=== PATIENT | male | born 1965 | race Caucasian/White ===

== ENCOUNTER 2020-11-14 08:39 | Emergency (ER) | payer MEDICAID ==
[~2020-11-14] VITALS: Ht 167.6 cm; Wt 90.7 kg
[2020-11-14 08:45] VITALS: BP_SYST 145
[2020-11-14] MEDS ORDERED: IBUPROFEN 400 MG TABLET PO ONE (09:00)
[2020-11-14] MEDS ORDERED: ACYC400T PO (09:02)
[2020-11-14] MEDS ORDERED: NAPR-1172 PO (09:02)
[2020-11-14 15:01] VITALS: BP_SYST 145
== END 2020-11-14 15:01 | disposition home or self-care (01) ==
LOC: SED 08:39
DX: B00.1 Herpesviral vesicular dermatitis (principal); Z79.899 Other long term (current) drug therapy
CPT/HCPCS: 99283

== ENCOUNTER 2021-06-05 18:56 | Inpatient (IN) | payer MEDICAID, SELFPAY ==
[~2021-06-05] VITALS: Ht 177.8 cm; Wt 88.0 kg
[2021-06-05 18:56] VITALS: BP_SYST 134
[~2021-06-05 18:56] MED LIST: ACYC400T19 PO; NAPR-1172 PO
--- NOTE | 2021-06-05 18:56 | NUR ---
ASSISTED OUT OF CAR TO WHEELCHAIR, PLACED IN BED #7 AND TRIAGED. REPORT GIVEN TO LISE TORRES
--- NOTE | 2021-06-05 19:05 | NUR ---
nowPt awake, alert. States that he had beed having sciatica pain in left leg for some time. Whats diffrent is that today he vomited dark tarry emesis and defecated dark tarry stools.
--- NOTE | 2021-06-05 19:05 | NUR ---
ER at bedside examining patient.
[2021-06-05] MEDS ORDERED: ONDANSETRON HCL 4 MG/2 ML VIAL IVP ONE (19:15)
[2021-06-05] MEDS ORDERED: PANTOPRAZOLE SODIUM 40 MG/VIAL (PROTONIX) IVP ONE (19:15)
[2021-06-05] MEDS ORDERED: NACL 0.9% 1,000 ML IV ONE (19:15)
[2021-06-05] MEDS ORDERED: ONDANSETRON HCL 4 MG/2 ML VIAL ONE (19:30)
[2021-06-05 19:37] LABS: BASOPHILS % (AUTO) 0.3 % (0.0-2.0); EOSINOPHILS % (AUTO) 0.2 % (0.0-4.0); HEMATOCRIT 26.2 % (36-54); HEMOGLOBIN 9.1 g/dL (14.0-18.0); LYMPHOCYTES % (AUTO) 15.6 % (20.5-51.5); MEAN CORPUSCULAR HEMOGLOBIN 33 pg (27-31); MEAN CORPUSCULAR HGB CONC 35 % (32-36); MEAN CORPUSCULAR VOLUME 94 fL (79.0-98.0); MONOCYTES # (AUTO) 0.6 K/uL (0.0-1.0); MONOCYTES % (AUTO) 4.6 % (1.7-9.3); NEUTROPHILS % (AUTO) 79.3 % (40.0-70.0); PLATELET COUNT (AUTO) 200 K/uL (130-430); RED CELL DISTRIBUTION WIDTH 15.1 % (9.0-15.0); WHITE BLOOD COUNT (AUTO) 12.7 K/uL (4.8-10.8)
[2021-06-05 19:42] LABS: CALCIUM 8.4 mg/dL (8.4-11.0); CREATININE 0.94 mg/dL (0.55-1.30)
[2021-06-05 19:44] LABS: INR 1.1 (0.80-1.20); PROTHROMBIN TIME 12.1 SECS (9.5-12.5)
[2021-06-05 19:48] LABS: ALBUMIN 2.1 g/dL (3.4-4.8); TOTAL BILIRUBIN 1.1 mg/dL (0.0-1.0)
--- NOTE | 2021-06-05 20:55 | NUR ---
RECTAL EXAM FOR OCCULT BLOOD, STOOL GUIAC POSITIVE.
--- NOTE | 2021-06-05 21:25 | NUR ---
CT ABDOMEN AND PELVIS W/ CONTRAST DONE.
--- NOTE | 2021-06-05 22:30 | NUR ---
BACK FROM US SCROTUM.
[2021-06-05] MEDS ORDERED: MORPHINE 2 MG/ML INJ. SYRINGE IVP PRN (23:00)
[2021-06-05] MEDS ORDERED: ONDANSETRON HCL 4 MG/2 ML VIAL IVP PRN (23:00)
[2021-06-05] MEDS ORDERED: LORazepam 2 MG/ML VIAL IVP PRN (23:00)
[2021-06-05 23:32] LABS: FREE T4 (FREE THYROXINE) 1.4 ng/dl (0.8-1.5); THYROID STIMULATING HORMONE 2.89 uIu/mL (0.36-3.74)
[2021-06-06] MEDS ORDERED: MORPHINE 4 MG INJ. 4 MG/ML VIAL IVP ONE (00:15)
--- NOTE | 2021-06-06 01:00 | NUR ---
Patient will be admitted to care of DR ALBERTO. Admitted to TELEMETRY unit. Will go to room 117-B. Belongings list completed. Complete and up to date summary report printed. SBAR report to be given at bedside with opportunity for questions.
--- NOTE | 2021-06-06 01:20 | NUR ---
ADMISSION NOTE Received patient from ER via georg[facility], received report from BRIAN LEZAMA. Patient admitted with diagnosis of GI BLEED. Patient oriented to hospital routine, call light, toileting and safety-patient verbalized understanding.
[2021-06-06 01:30] VITALS: BP_SYST 141
[2021-06-06] MEDS: MORPHINE 4 MG INJ. 4 MG/ML VIAL IVP PRN ×3 (01:51→23:08)
[2021-06-06] MEDS: NACL 0.9% 1,000 ML IV SCH ×3 (01:53→19:47)
[2021-06-06] MEDS ORDERED: OCTREOTIDE ACETATE 200 MCG/1 ML 5ML VIAL ONE (02:19)
[2021-06-06] MEDS ORDERED: PANTOPRAZOLE SODIUM 40 MG/VIAL (PROTONIX) ONE ×2 (02:28→06:29)
[2021-06-06] MEDS: PANTOPRAZOLE SODIUM 40 MG in NS 50 ML IV SCH ×5 (02:39→18:54)
[2021-06-06] MEDS: OCTREOTIDE ACETATE 1,250 MCG in NS 243.75 ML IV SCH ×2 (02:57→23:08)
--- NOTE | 2021-06-06 03:00 | NUR ---
NEW IV STARTED ON RIGHT FOREARM 22G, PATIENT TOLERATED IT WELL.
--- NOTE | 2021-06-06 03:20 | NUR ---
CONSULTATION PAGED REASON FOR CONSULTATION: GIB WAS CONSULT CALED?Y PERSON WHO WAS NOTIFIED: Xiomara CONSULTING PHYSICIAN: Dr. Darling (Dr. Pickard is supervisor international reservations) REQUESTING PHYSICIAN: Dr. Pizarro
[2021-06-06] MEDS: metroNIDAZOLE 500 MG TABLET PO SCH ×3 (06:17→22:52)
--- NOTE | 2021-06-06 06:28 | NUR ---
SPOKE WITH DR ALBERTO, CLARIFIED PATIENT'S DIET. MD ORDERED NPO EXCEPT MEDS WITH SIPS OF H2O
--- NOTE | 2021-06-06 06:32 | NUR ---
Nutrition Update Han Scale 18 noted. Pt admitted for GI Bleed Diet: NPO BMI: 28.7 kg/m2 RD to follow per nutrition care standards.
--- NOTE | 2021-06-06 07:15 | NUR ---
opening note received sbar from night RN, patient in bed, respirations even, non labored, bed in low and locked position call light within reach, bed alarm on. ivf''s running as ordered.
--- NOTE | 2021-06-06 07:45 | NUR ---
md rounds Dr Esquivel bedside examining patient
--- NOTE | 2021-06-06 08:44 | NUR ---
CONSULTATION PAGED REASON FOR CONSULTATION:R/O NEOPLASM WAS CONSULT CALLED?Y PERSON WHO WAS NOTIFIED:CARA CONSULTING PHYSICIAN:STEPHANIE ESCALONA SECURITY PROGRAM MANAGER SPECIALTY:ONCOLOGY/HE,ATOLOGY SECURITY PROGRAM MANAGER PHONE NUMBER:[phone] REQUESTING PHYSICIAN:RAFIQ CABRERA
[2021-06-06 09:56] LABS: BASOPHILS % (AUTO) 0.4 % (0.0-2.0); EOSINOPHILS # (AUTO) 0.1 K/uL (0.0-0.4); HEMATOCRIT 22.1 % (36-54); LYMPHOCYTES # (AUTO) 1.4 K/uL (1.0-5.5); LYMPHOCYTES % (AUTO) 13.5 % (20.5-51.5); MEAN CORPUSCULAR HEMOGLOBIN 33 pg (27-31); MEAN CORPUSCULAR HGB CONC 35 % (32-36); MEAN CORPUSCULAR VOLUME 96 fL (79.0-98.0); MONOCYTES # (AUTO) 0.8 K/uL (0.0-1.0); MONOCYTES % (AUTO) 7.4 % (1.7-9.3); NEUTROPHILS # (AUTO) 8.1 K/uL (1.8-7.7); NEUTROPHILS % (AUTO) 77.7 % (40.0-70.0); PLATELET COUNT (AUTO) 142 K/uL (130-430); RED BLOOD CELL COUNT(AUTO) 2.32 MIL/uL (4.2-6.2); RED CELL DISTRIBUTION WIDTH 15.4 % (9.0-15.0); WHITE BLOOD COUNT (AUTO) 10.5 K/uL (4.8-10.8)
[2021-06-06 10:00] LABS: ALANINE AMINOTRANSFERASE 55 U/L (12-78); ALBUMIN 1.9 g/dL (3.4-4.8); ANION GAP 10 (5-15); ASPARTATE AMINOTRANSFERASE 97 U/L (10-37); CALCIUM 7.7 mg/dL (8.4-11.0); CHLORIDE 111 mmol/L (98-107); CREATININE 1.03 mg/dL (0.55-1.30); GLUCOSE 107 mg/dL (70-99); PHOSPHORUS 3.2 mg/dL (2.7-4.5); POTASSIUM 4.2 mmol/L (3.5-5.1); SODIUM SERUM 142 mmol/L (136-145); TOTAL BILIRUBIN 1.3 mg/dL (0.0-1.0); UREA NITROGEN, BLOOD 34 mg/dL (8-21)
[2021-06-06 10:01] LABS: GFR AFRICAN AMERICAN 96 mL/min (>90)
[2021-06-06 10:08] LABS: HEMOGLOBIN 7.7 g/dL (14.0-18.0)
--- NOTE | 2021-06-06 10:15 | NUR ---
nurse note spoke with Kan in the lab, they will run urine drug screen off urine that was collected for UA this am
[2021-06-06 10:16] LABS: TOTAL IRON BIND. CAPACITY 318 ug/dL (250-450)
[2021-06-06 10:17] LABS: ALCOHOL, BLOOD < 3 mg/dL (<10)
[2021-06-06 10:42] LABS: BARBITURATE, URINE NEGATIVE (NEG <=200); METHAMPHETAMINES SCREEN,URINE POSITIVE (NEG <=500); URINE AMPHETAMINE POSITIVE (NEG <=500); URINE METHADONE NEGATIVE (NEG <=200)
[2021-06-06 10:43] LABS: BENZODIAZEPINE, URINE NEGATIVE (NEG <=150); CANNABINOID, URINE POSITIVE (NEG <=50); COCAINE, URINE NEGATIVE (NEG <=150); OPIATE, URINE POSITIVE (NEG <=100); PHENCYCLIDINE SCREEN,URINE NEGATIVE (NEG <=25); UR TRICYCLIC ANTIDEPRESSANTS NEGATIVE (NEG <=300); URINE OXYCODONE SCREEN NEGATIVE (NEG <=100); URINE PROPOXYPHENE SCREEN NEGATIVE (NEG <=300)
[2021-06-06 11:33] VITALS: BP_SYST 158
--- NOTE | 2021-06-06 12:50 | NUR ---
MD ROUNDS DR YING BEDSIDE EXAMINING PATIENT
--- NOTE | 2021-06-06 12:57 | NUR ---
MD ROUNDS DR ALBERTO BEDSIDE EXAMINING PATIENT
[2021-06-06 15:26] VITALS: BP_SYST 155
[2021-06-06 16:00] VITALS: BP_SYST 148
--- NOTE | 2021-06-06 17:10 | NUR ---
NURSE NOTE PATIENT IN BED, RESPIRATIONS EVEN, NON LABORED, BED IN LOW AND LOCKED POSITION, CALL LIGHT WITHIN REACH, BED ALARM ON. PATIENTS GIRLFRIEND IS VISITING BEDSIDE
--- NOTE | 2021-06-06 18:59 | NUR ---
CLOSING NOTE PATIENT IN BED, RESPIRATIONS EVEN, NON LABORED, BED IN LOW AND LOCKED POSITION, CALL LIGHT WITHIN REACH, BED ALARM ON, IVF'S RUNNING ORDERED. WILL CONTINUE TO MONITOR UNTIL NIGHT RN ARRIVES
--- NOTE | 2021-06-06 19:30 | NUR ---
Opening note Received pt, lying in bed to the left side, resting with eyes closed. Easily arouse by voice and tactile stimuli. On RA, breathing non labored. 2 IV site patent and intact, no infiltrations noted. AOX4, call light within reach, bed to lowest with bed alarm on. On Fall safety/aspiration precaution.
[2021-06-06 23:23] VITALS: BP_SYST 148
--- NOTE | 2021-06-07 | NUR ---
acknowledge bias machine operator helper documentation.
[2021-06-07] MEDS: PANTOPRAZOLE SODIUM 40 MG in NS 50 ML IV SCH ×5 (00:05→19:48)
[2021-06-07 00:06] VITALS: BP_SYST 148
[2021-06-07 05:08] LABS: FOLATE (FOLIC ACID) 8.6 ng/mL (>3.0)
[2021-06-07] MEDS: metroNIDAZOLE 500 MG TABLET PO SCH ×3 (05:13→21:06)
[2021-06-07] MEDS: NACL 0.9% 1,000 ML IV SCH ×3 (05:16→17:15)
[2021-06-07 06:11] LABS: BASOPHILS % (AUTO) 0.4 % (0.0-2.0); EOSINOPHILS # (AUTO) 0.2 K/uL (0.0-0.4); EOSINOPHILS % (AUTO) 1.8 % (0.0-4.0); HEMATOCRIT 22.8 % (36-54); HEMOGLOBIN 7.8 g/dL (14.0-18.0); LYMPHOCYTES # (AUTO) 1.4 K/uL (1.0-5.5); LYMPHOCYTES % (AUTO) 13.5 % (20.5-51.5); MEAN CORPUSCULAR HEMOGLOBIN 34 pg (27-31); MEAN CORPUSCULAR HGB CONC 34 % (32-36); MEAN CORPUSCULAR VOLUME 100 fL (79.0-98.0); MONOCYTES # (AUTO) 0.7 K/uL (0.0-1.0); MONOCYTES % (AUTO) 6.9 % (1.7-9.3); NEUTROPHILS % (AUTO) 77.4 % (40.0-70.0); PLATELET COUNT (AUTO) 142 K/uL (130-430); RED BLOOD CELL COUNT(AUTO) 2.29 MIL/uL (4.2-6.2); RED CELL DISTRIBUTION WIDTH 15.7 % (9.0-15.0); WHITE BLOOD COUNT (AUTO) 10.4 K/uL (4.8-10.8)
--- NOTE | 2021-06-07 06:14 | NUR ---
Closing note Resident sleeping, able to arouse verbally and tactile stimuli. On RA, non labored. AOX4, IV sites patent and intact, no infiltrations or complications noted. Been NPO since midnight for am procedure. Call light within reach, on safety/fall/aspiration precaution. Frequent rounding checks down.
[2021-06-07 06:17] LABS: INR 1.2 (0.80-1.20); PROTHROMBIN TIME 12.2 SECS (9.5-12.5)
[2021-06-07 06:30] LABS: CALCIUM 7.5 mg/dL (8.4-11.0); CREATININE 1.03 mg/dL (0.55-1.30); PHOSPHORUS 3.1 mg/dL (2.7-4.5); POTASSIUM 3.6 mmol/L (3.5-5.1); TOTAL BILIRUBIN 1.3 mg/dL (0.0-1.0)
--- NOTE | 2021-06-07 07:25 | NUR ---
OPENING NOTES: RECEIVED REPORT FROM WOOD DRILLING MACHINE OPERATOR NURSE. PATIENT IS ASLEEP LAYING DOWN IN BED. TOLERATED OXYGEN ON ROOM AIR WITH NO DISTRESS NOTED. IV LINE PATENT AND INTACT. WITH NO INFILTRATION NOTED. PATIENT STABLE AT THIS TIME. SAFETY, FALL, AND ASPIRATION PRECAUTIONS ARE IN PLACE. BED LOCKED IN LOWEST POSITION AND CALL LIGHT IN REACH. WILL CONTINUE TO MONITOR PATIENT FOR ANY CHANGES.
[2021-06-07] MEDS ORDERED: MIDAZOLAM HCL 5 MG/5 ML VIAL ONE (07:50)
[2021-06-07] MEDS ORDERED: SIMETHICONE 40 MG/0.6 ML ML ONE (07:50)
[2021-06-07] MEDS ORDERED: MEPERIDINE 100 MG INJ. 100 MG/ML VIAL ONE (07:50)
[2021-06-07 08:00] VITALS: BP_SYST 159
--- NOTE | 2021-06-07 08:00 | NUR ---
PATIENT WHEELED TO GI FOR EGD. AWAITING FOR COME BACK.
--- NOTE | 2021-06-07 09:20 | NUR ---
PATIENT BACK ON HIS ROOM AFTER EGD.
[2021-06-07 11:29] VITALS: BP_SYST 161
[2021-06-07 12:00] VITALS: BP_SYST 161
--- NOTE | 2021-06-07 13:47 | NUR ---
Dietitian Recommendations * Recommend: advance diet when medically appropriate * Recommend: target diet: GI/soft Cardiac diet Please see Nutritional Assessment.
[2021-06-07 16:00] VITALS: BP_SYST 169
--- NOTE | 2021-06-07 16:31 | NUR ---
CONSULTATION PAGED/CALLED Reason for Consultation: [] HYPERTENSION Person Who was Notified: [] MAGALY Consulting Physician: [] DR BUI Shift Manager Specialty: [] INSPECTOR CIRCUITRY NEGATIVE Ordering Physician: [] DR ORELLANA
--- NOTE | 2021-06-07 18:32 | NUR ---
CLOSING NOTES: PATIENT IS ASLEEP LAYING DOWN IN BED. TOLERATED OXYGEN ON ROOM AIR WITH NO DISTRESS NOTED. IV LINE PATENT AND INTACT. WITH NO INFILTRATION NOTED. PATIENT STABLE AT THIS TIME. SAFETY, FALL, AND ASPIRATION PRECAUTIONS REMAINED IN PLACE. BED LOCKED IN LOWEST POSITION AND CALL LIGHT IN REACH. WILL ENDORSE PATIENT CARE TO ONCOMING EARTH OBSERVATIONS CHIEF SCIENTIST NURSE.
[2021-06-07] MEDS: amLODIPine BESYLATE 5 MG TABLET PO SCH (18:45)
--- NOTE | 2021-06-07 19:30 | NUR ---
Opening note Received pt from out going nurse. Pt lying in bed awake and alert with family at bedside. On RA, breathing non labored. No distress noted. Pt has 2 IVs, both patent and intact, no infiltration or complications. Bed to lowest position and locked/alarmed. Call light within reach and needs attended. On safety/fall/aspiration precaution.
[2021-06-07] MEDS: MORPHINE 4 MG INJ. 4 MG/ML VIAL IVP PRN (19:53)
[2021-06-07] MEDS ORDERED: amLODIPine BESYLATE 5 MG TABLET PO ONE (20:45)
[2021-06-07 22:24] VITALS: BP_SYST 164
[2021-06-07] MEDS: OCTREOTIDE ACETATE 1,250 MCG in NS 243.75 ML IV SCH (23:38)
[2021-06-08] MEDS: PANTOPRAZOLE SODIUM 40 MG in NS 50 ML IV SCH ×2 (00:51→05:43)
[2021-06-08 00:59] VITALS: BP_SYST 149
[2021-06-08] MEDS: MORPHINE 4 MG INJ. 4 MG/ML VIAL IVP PRN ×4 (02:52→18:34)
[2021-06-08] MEDS: metroNIDAZOLE 500 MG TABLET PO SCH ×3 (05:43→22:42)
--- NOTE | 2021-06-08 06:17 | NUR ---
Closing note Resident sleeping, able to arouse verbally and tactile stimuli. On RA, non labored. AOX4, IV sites patent and intact, no infiltrations or complications noted. Call light within reach, on safety/fall/aspiration precaution. Frequent rounding checks down.
[2021-06-08 06:28] LABS: BASOPHILS % (AUTO) 0.4 % (0.0-2.0); EOSINOPHILS # (AUTO) 0.2 K/uL (0.0-0.4); EOSINOPHILS % (AUTO) 1.8 % (0.0-4.0); HEMATOCRIT 22.3 % (36-54); LYMPHOCYTES % (AUTO) 10.8 % (20.5-51.5); MEAN CORPUSCULAR HEMOGLOBIN 35 pg (27-31); MEAN CORPUSCULAR HGB CONC 35 % (32-36); MEAN CORPUSCULAR VOLUME 100 fL (79.0-98.0); MONOCYTES # (AUTO) 0.7 K/uL (0.0-1.0); MONOCYTES % (AUTO) 7.4 % (1.7-9.3); NEUTROPHILS # (AUTO) 7.1 K/uL (1.8-7.7); NEUTROPHILS % (AUTO) 79.6 % (40.0-70.0); PLATELET COUNT (AUTO) 126 K/uL (130-430); RED BLOOD CELL COUNT(AUTO) 2.23 MIL/uL (4.2-6.2); RED CELL DISTRIBUTION WIDTH 16.1 % (9.0-15.0); WHITE BLOOD COUNT (AUTO) 8.9 K/uL (4.8-10.8)
[2021-06-08 06:31] LABS: CALCIUM 7.6 mg/dL (8.4-11.0); CREATININE 0.97 mg/dL (0.55-1.30); POTASSIUM 3.5 mmol/L (3.5-5.1)
--- NOTE | 2021-06-08 07:40 | NUR ---
OPENING NOTES: RECEIVED REPORT FROM INSTANT POTATO PROCESSOR NURSE. PATIENT IS ASLEEP LAYING DOWN IN BED. TOLERATED OXYGEN ON ROOM AIR WITH NO DISTRESS NOTED. IV LINE PATENT AND INTACT. WITH NO INFILTRATION NOTED. PATIENT STABLE AT THIS TIME. SAFETY, FALL, AND ASPIRATION PRECAUTIONS ARE IN PLACE. BED LOCKED IN LOWEST POSITION AND CALL LIGHT IN REACH. WILL CONTINUE TO MONITOR PATIENT FOR ANY CHANGES.
[2021-06-08 08:00] VITALS: BP_SYST 158
[2021-06-08 08:16] LABS: HEMOGLOBIN 7.9 g/dL (14.0-18.0)
[2021-06-08] MEDS: PANTOPRAZOLE SODIUM 40 MG/VIAL (PROTONIX) IVP SCH ×2 (09:24→20:03)
[2021-06-08] MEDS: amLODIPine BESYLATE 5 MG TABLET PO SCH (09:25)
[2021-06-08] MEDS: PROPRANOLOL HCL 10 MG TABLET (INDERAL) PO SCH ×2 (09:26→20:03)
[2021-06-08] MEDS: NACL 0.9% 1,000 ML IV SCH ×2 (09:29→19:59)
[2021-06-08 12:09] VITALS: BP_SYST 156
[2021-06-08 15:52] VITALS: BP_SYST 145
--- NOTE | 2021-06-08 16:02 | NUR ---
SS notes SPECIAL EVENTS FUNDRAISER met with pt. bedside. Pt had a visitor, Alyssa Randall present. SPECIAL EVENTS FUNDRAISER aked if pt. wanted his girlfriend, Alyssa to leave the room. Pt. gave permission to speak in front girlfriend. SPECIAL EVENTS FUNDRAISER explained her role as a marriage and family social worker and asked pt. to confirm his demographics. Pt. stated he and girlfriend reside together. Pt. has 3 adult children as additional support. Children reside in [facility] and [place]. SPECIAL EVENTS FUNDRAISER told pt. she was there for his positive toxicology. Pt. stated he knew SPECIAL EVENTS FUNDRAISER wanted to talk about this matter. SPECIAL EVENTS FUNDRAISER brought a copy of the toxicology report with her to show Pt. who stated he barely uses and does not know why he tested for Opiates, Amphetamines, Methamphetamines and Cannabinoids. Pt. stated he uses for pain relief and knows it is a way to self medicate. Pt. stated he uses girlfreinds vapor with pot in it. GF stated she gets it at a dispensary and said she does not put anything extra inside her vape. SPECIAL EVENTS FUNDRAISER shared some resources with pt. and asked if he wanted to make any changes. Pt. stated he will speak to the Dr. sun medication for his pain and seek any substance abuse assistance. SPECIAL EVENTS FUNDRAISER asked pt. if he had any questions and shared a business card with him. SPECIAL EVENTS FUNDRAISER will remain available as needed.
[2021-06-08 16:06] VITALS: BP_SYST 145
--- NOTE | 2021-06-08 18:30 | NUR ---
CLOSING NOTES: PATIENT IS ASLEEP LAYING DOWN IN BED. TOLERATED OXYGEN ON ROOM AIR WITH NO DISTRESS NOTED. IV LINE PATENT AND INTACT. WITH NO INFILTRATION NOTED. PATIENT STABLE AT THIS TIME. SAFETY, FALL, AND ASPIRATION PRECAUTIONS REMAINED IN PLACE. BED LOCKED IN LOWEST POSITION AND CALL LIGHT IN REACH. WILL ENDORSE PATIENT CARE TO ONCOMING DIRECTOR OF REGIONAL SALES NURSE.
[2021-06-08 20:00] VITALS: BP_SYST 148
[2021-06-08] MEDS: OCTREOTIDE ACETATE 1,250 MCG in NS 243.75 ML IV SCH (22:42)
[2021-06-09 00:53] VITALS: BP_SYST 136
[2021-06-09] MEDS: MORPHINE 4 MG INJ. 4 MG/ML VIAL IVP PRN ×3 (01:20→14:02)
[2021-06-09 06:25] LABS: CALCIUM 7.3 mg/dL (8.4-11.0); CREATININE 0.95 mg/dL (0.55-1.30); POTASSIUM 3.5 mmol/L (3.5-5.1)
[2021-06-09] MEDS: metroNIDAZOLE 500 MG TABLET PO SCH ×2 (06:43→13:45)
[2021-06-09] MEDS: NACL 0.9% 1,000 ML IV SCH (06:44)
[2021-06-09 07:25] LABS: BASOPHILS % (AUTO) 0.3 % (0.0-2.0); EOSINOPHILS # (AUTO) 0.2 K/uL (0.0-0.4); EOSINOPHILS % (AUTO) 1.7 % (0.0-4.0); HEMOGLOBIN 7.5 g/dL (14.0-18.0); LYMPHOCYTES # (AUTO) 1.2 K/uL (1.0-5.5); LYMPHOCYTES % (AUTO) 13.1 % (20.5-51.5); MEAN CORPUSCULAR HEMOGLOBIN 35 pg (27-31); MEAN CORPUSCULAR HGB CONC 35 % (32-36); MEAN CORPUSCULAR VOLUME 100 fL (79.0-98.0); MONOCYTES # (AUTO) 0.7 K/uL (0.0-1.0); MONOCYTES % (AUTO) 7.3 % (1.7-9.3); NEUTROPHILS # (AUTO) 7.2 K/uL (1.8-7.7); NEUTROPHILS % (AUTO) 77.6 % (40.0-70.0); PLATELET COUNT (AUTO) 137 K/uL (130-430); RED BLOOD CELL COUNT(AUTO) 2.13 MIL/uL (4.2-6.2); RED CELL DISTRIBUTION WIDTH 16.7 % (9.0-15.0); WHITE BLOOD COUNT (AUTO) 9.2 K/uL (4.8-10.8)
[2021-06-09 07:29] LABS: HEMATOCRIT 21.2 % (36-54)
--- NOTE | 2021-06-09 07:44 | NUR ---
CLOSING NOTES: PATIENT IS IN BED, ALERT AND ORIENTED. REPORT GIVEN TO DAYSHIFT NURSE.
--- NOTE | 2021-06-09 07:50 | NUR ---
NURSING NOTE NOTIFIED MD YING OF CRITICAL VALUE, H&H 7.5/21.2. STATED " WILL CONTINUE TO MONITOR AND WILL PROVIDE BLOOD TRANSFUSION ID HEMOGLOBIN DROPS BELOW 7.
[2021-06-09 08:00] VITALS: BP_SYST 125
--- NOTE | 2021-06-09 08:27 | NUR ---
PT GIVEN PAIN MEDICATION FOR LEFT LEGD PAIN.
[2021-06-09] MEDS: PROPRANOLOL HCL 10 MG TABLET (INDERAL) PO SCH (08:28)
[2021-06-09] MEDS: amLODIPine BESYLATE 5 MG TABLET PO SCH (08:29)
[2021-06-09] MEDS: PANTOPRAZOLE SODIUM 40 MG/VIAL (PROTONIX) IVP SCH (08:30)
[2021-06-09 12:00] VITALS: BP_SYST 144
--- NOTE | 2021-06-09 15:27 | NUR ---
REVIEWED ASSESSMENT BY ESTRELLA DURAN. THIS RN CONCUR WITH HIS ASSESSMENT.
[2021-06-09 16:00] VITALS: BP_SYST 138
--- NOTE | 2021-06-09 16:33 | NUR ---
GEN SURGEON, DR ADAMSON WAS CALLED RE: TO INFORM PT WENT AMA. SPOKE TO GRETA
--- NOTE | 2021-06-09 16:35 | NUR ---
LOG DECKMAN ATTENDING MD DR CRISTIAN MCWILLIAMS WAS CALLED, RE: TO INFORM PT WENT AMA.
--- NOTE | 2021-06-09 16:39 | NUR ---
PT SIGNED AMA. PT LEFT WITH HIS .
--- NOTE | 2021-06-09 16:40 | NUR ---
UNIT SECT JOSÉ CALLED DR MCWILLIAMS AND DR ADAMSON TO MAKE AWARE OF PT'S AMA.
== END 2021-06-09 16:40 | disposition left against medical advice (07) | DRG 241 ==
LOC: SED 18:56 → STU 22:58
PROC: 06L38CZ Occlusion of Esophageal Vein with Extraluminal Device, Via Natural or Artificial Opening Endoscopic (ICD-10-PCS; 2021-06-07)
PROC: 0DB78ZX Excision of Stomach, Pylorus, Via Natural or Artificial Opening Endoscopic, Diagnostic (ICD-10-PCS; principal; 2021-06-07 08:30)
DX: K29.71 Gastritis, unspecified, with bleeding (principal); E43 Unspecified severe protein-calorie malnutrition; I42.0 Dilated cardiomyopathy; R18.8 Other ascites; E87.8 Other disorders of electrolyte and fluid balance, not elsewhere classified; R16.2 Hepatomegaly with splenomegaly, not elsewhere classified; I85.01 Esophageal varices with bleeding; K74.60 Unspecified cirrhosis of liver; E86.0 Dehydration; D72.829 Elevated white blood cell count, unspecified; D64.9 Anemia, unspecified; N43.3 Hydrocele, unspecified; R59.1 Generalized enlarged lymph nodes; K44.9 Diaphragmatic hernia without obstruction or gangrene; F17.210 Nicotine dependence, cigarettes, uncomplicated; Z20.822 Contact with and (suspected) exposure to COVID-19; Z53.29 Procedure and treatment not carried out because of patient's decision for other reasons; I10 Essential (primary) hypertension; I25.10 Atherosclerotic heart disease of native coronary artery without angina pectoris; M54.30 Sciatica, unspecified side; Z88.1 Allergy status to other antibiotic agents; Z88.8 Allergy status to other drugs, medicaments and biological substances; Z79.899 Other long term (current) drug therapy; Z68.20 Body mass index [BMI] 20.0-20.9, adult
CPT/HCPCS: 36415; 43244; 71260-TC; 76376; 76700-TC; 76870-TC; 80048; 80053; 80307; 82140; 82150; 82272; 82607; 82728; 82746; 83036; 83540; 83550; 83615; 83690; 83735; 83880; 84100; 84439; 84443; 85025; 85610-TC; 87040-TC; 87081; 88305; 88312; 88313; 93005; 93306; 96361; 96374; 96375; 97112-GP; 97163-GP; 99285; C9113; G0378; G0482; J2175; J2250; J2270; J2354; J2405; J7050; Q9967